=== PATIENT | male | born 1990 | race Hispanic/Latino ===

== ENCOUNTER 2018-05-01 19:26 | Emergency (ER) | payer BC, OTHER ==
[2018-05-01 20:37] VITALS: BMI 24.3
[2018-05-01 20:40] VITALS: BP 128/83; PULSE 71; RESP 16; TEMP 97.7; O2SAT 99
--- NOTE | 2018-05-01 22:11 | CT ---
EXAM: CT Head Without Intravenous Contrast EXAM DATE/TIME: 05/01/2018 8:47 PM CLINICAL HISTORY: 27 years old, male; Injury or trauma; Injury Pt. States; He was hit in the back of the head by someone's knee, last week playing football; Initial encounter; Concussion / head injury; With loss of consciousness; Loss of consciousness for 30 minutes or less; Injury date: 04-25-2018; Additional info: Headache, 1 week, head injury with loc TECHNIQUE: Axial computed tomography images of the head/brain without intravenous contrast. All CT scans at this facility use one or more dose reduction techniques, viz.: automated exposure control; ma/kV adjustment per patient size (including targeted exams where dose is matched to indication; i.e. head); or iterative reconstruction technique. Coronal and sagittal reformatted images were created and reviewed. COMPARISON: No relevant prior studies available. FINDINGS: No intracranial hemorrhage. No extra axial collections. No intracranial edema. No fluid in the sinuses or mastoid air cells. No depressed fractures. IMPRESSION: No acute intracranial injury.
--- NOTE | 2018-05-01 22:55 | ED PDOC ---
HPI: Headache Time Seen by Provider: 05/01/18 20:42 Chief Complaint (Nursing): Trauma Chief Complaint (Provider): Posterior head pain s/p trauma History Per: Patient History/Exam Limitations: no limitations Onset/Duration Of Symptoms: Days (1 week) Current Symptoms Are (Timing): Still Present Severity: Moderate Quality: Dull (Worse with rotation of head) Associated Symptoms: denies: Photophobia, Blurred Vision, Nausea, Vomiting Additional Complaint(s): Pt reports posterior head pain after hitting his head while playing football. Pt reports LOC after injury for "a short time" last week. Past Medical History Reviewed: Historical Data, Nursing Documentation, Vital Signs Vital Signs: Last Vital Signs Temp 97.7 F 05/01/18 20:37 Pulse 71 05/01/18 20:37 Resp 16 05/01/18 20:37 BP 128/83 05/01/18 20:37 Pulse Ox 99 05/01/18 20:37 - Medical History PMH: No Chronic Diseases - Surgical History Surgical History: No Surg Hx - Family History Family History: States: No Known Family Hx - Living Arrangements Living Arrangements: With Family - Social History Current smoker - smoking cessation education provided: No Alcohol: Occasional Drugs: Denies - Immunization History Hx Tetanus Toxoid Vaccination: (up to date) - Home Medications Home Medications: Ambulatory Orders Medication Instructions Recorded No Known Home Med [No Known Home 08/23/14 Med] - Allergies Allergies/Adverse Reactions: Allergies Allergy/AdvReac Type Severity Reaction Status Date / Time No Known Allergies Allergy Verified 05/01/18 20:37 Review of Systems ROS Statement: Except As Marked, All Systems Reviewed And Found Negative Constitutional: Negative for: Fever, Chills Neurological: Positive for: Headache. Negative for: Dizziness Physical Exam - Reviewed Nursing Documentation Reviewed: Yes Vital Signs Reviewed: Yes - Physical Exam Appears: Positive for: Well, Non-toxic, No Acute Distress Head Exam: Positive for: ATRAUMATIC, NORMAL INSPECTION, NORMOCEPHALIC Skin: Positive for: Normal Color, Warm, DRY Eye Exam: Positive for: Normal appearance ENT: Positive for: Normal ENT Inspection Neck: Positive for: Normal, Painless ROM Respiratory: Negative for: Accessory Muscle Use, Respiratory Distress Gastrointestinal/Abdominal: Positive for: Normal Exam, Soft Back: Positive for: Normal Inspection Extremity: Positive for: Normal ROM Neurologic/Psych: Positive for: Alert, Oriented, Gait. Negative for: Aphasia, Facial Droop - ECG O2 Sat by Pulse Oximetry: 99 Medical Decision Making Medical Decision Making: Head CT normal. Disposition - Clinical Impression Clinical Impression: Head injury - Disposition Referrals: Tarik Lala MD [Primary Care Provider] - Sabino Del Castillo MD [Medical Doctor] - Disposition: Routine/Home Disposition Time: 22:56 Condition: STABLE Instructions: Concussion in Adults, Postconcussion Syndrome
== END 2018-05-01 22:59 | disposition home or self-care (01) ==
LOC: H.ER 19:26
DX: S09.90XA Unspecified injury of head, initial encounter (principal); W22.8XXA Striking against or struck by other objects, initial encounter; Y93.61 Activity, american tackle football